=== PATIENT | female | born 1980 | race Hispanic/Latino ===

== ENCOUNTER 2016-09-18 09:39 | Day surgery (SDC) | payer OTHER ==
[~2016-09-18] VITALS: Ht 149.9 cm; Wt 69.3 kg
[2016-09-18] VITALS (9 sets, daily range): BP systolic 99–114; BP diastolic 52–65; PULSE 64–97; RESP 10–19; O2SAT 90–100
[~2016-09-18 09:39] MED LIST: BUTA1TAB52 PO; LEVO125T6 PO; Lactated Ringer's 1,000 ML IV ONE; Levofloxacin 500 mg/100 mL D5W IV ONE; OXYC5TAB72 PO; POLY17PO6 PO; PREN-100 PO; Polyethylene Glycol (PEG) 17 Gm Powder PO SCH
[2016-09-18] MEDS ORDERED: Rocuronium 10 mg/mL 5 mL Inj ONE (09:40)
[2016-09-18] MEDS ORDERED: fentaNYL-PF 50 mCg/mL 2 mL Inj ONE (09:40)
[2016-09-18] MEDS ORDERED: Neostigmine 1 mg/mL 5 mL Inj ONE (09:40)
[2016-09-18] MEDS ORDERED: Ondansetron 2 mg/mL 2 mL Inj ONE (09:40)
[2016-09-18] MEDS ORDERED: Propofol 10,000 mCg/mL 20 mL Inj ONE (09:40)
[2016-09-18] MEDS ORDERED: EPHEDrine/NS 5 mg/mL 5 mL Syringe ONE (09:40)
[2016-09-18] MEDS ORDERED: Lidocaine PF 1% 30 mL Inj ONE (09:40)
[2016-09-18] MEDS ORDERED: Dexamethasone 4 mg/mL Inj ONE (09:40)
[2016-09-18] MEDS ORDERED: Glycopyrrolate 0.2 mg/mL 5 mL Inj ONE (09:40)
[2016-09-18 10:34] LABS: BASOPHILS % (AUTO) 0.2 % (0-3); EOSINOPHILS % (AUTO) 2.6 % (0-5); MONOCYTES % (AUTO) 6.7 % (4-12); Mean Corpuscular Hemoglobin 29.8 pg (27.0-35.0); Mean Corpuscular Volume 89.5 fL (81-100); Platelet Count 250 bil/L (150-400)
[2016-09-18] MEDS ORDERED: Lactated Ringer's 1,000 ML IV SCH (12:11)
[2016-09-18] MEDS ORDERED: Lactated Ringer's 500 ML IV PRN (12:11)
--- NOTE | 2016-09-18 12:11 | PCM.HPANE ---
Patient Data Surgeon Admitting Provider: Attending Provider:Fidelia Aquino MD Primary Care Physician:Geremias King MD Other Provider:[facility] Reason for Visit Cholelithiasis Ht/WT & BMI Height (Feet): 4 Height (Inches): 11 Weight (Kilograms): 68.95 Body Mass Index 30.00 Allergies Coded Allergies: No Known Allergies (Verified , 09/08/16) Past Anesthesia History Anesthesia History: Denies:: Anesthesia Reactions, Fam Anesthesia Reaction Diabetes History Hx Diabetes?: No MRSA MRSA: No Medications Active Scripts oxyCODONE 5 Mg Tablet5 Mg PO Q4H PRN For Moderate Pain #20 TABLET Prov:Fidelia Aquino MD 09/18/16 Polyethylene Glycol 3350 (Miralax)17 Gm Powd.pack17 Gm PO DAILY #20 Prov:Fidelia Aquino MD 09/18/16 Reported Medications Levothyroxine 125 Mcg [id number] Mcg PO DAILY For Thyroid Replacement Ref 0 09/06/16 Vits #90/Iron Fum/FA ( Formula Tablet)1 Each Tablet1 Each PO DAILY 09/06/16 Butalbital/Acetaminophen 50-325 mg 1 Each Tablet1-2 Tablet PO Q4H PRN migraines 09/06/16 History History of ENT Problems?: Yes HEENT History: Positive for:: TMJ (grinds, 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) Denies:: Cataracts Hearing Problem Hx of Heart Problems?: No Cardiovascular History: Denies:: AICD Abdominal Aortic Aneurism Atrial Fibrillation Chest Pain Edema Heart Murmur Hypertension Irregular Heartbeat Pacemaker Rheumatic Fever Hx of Respiratory Problem?: Yes Respiratory History: Positive for:: Asthma (hx of reactive airway, exercise induced) Pneumonia Use of C-PAP Machine (sleep study 04/2016- negative) Denies:: COPD Emphysema Oxygen Administration Tuberculosis (positive reading at age 7, negative CXR since) Hx Neurologic Problems?: Yes Neurological History: Positive for:: Headaches (migraines, not recently) Denies:: CVA Dizziness Multiple Sclerosis Parkinson's Disease Seizures Hx of GI Problems?: Yes Gastrointestinal History: Positive for:: Gall Bladder Disease (current admission problem) Gastroesphageal Reflux (OTC as needed, once weekly) Heartburn Denies:: Gastrointestinal Bleeding Hepatitis Hiatal Hernia Rectal Bleeding Hx of Problems?: No Genitourinary History: Denies:: Urinary Tract Infection Female Hx: Denies:: Currently (missed ab , D+C done 09/08/16) Problems with Breasts? Skin History: Denies:: History Skin Disorders? Pressure Ulcers Hx Musculoskeletal Problems?: No Musculoskeletal History: Denies:: Degenerative Joint Joint Replacement Musculoskeletal Trauma Systemic Lupus Hx of Psycho/Social Problems?: No Psycho Social History: Positive for:: Anxiety (occasional alprazalom) Denies:: Hx Depression Hx Surgeries?: Yes (thyroidectomy, right salpingectomy, D+C) Hx Any Other Health Problems?: Yes Other History: Positive for:: Cancer (thyroid- excision and radiation) Thyroid Disease History Blood Transfusions: Denies:: Blood Transfusions Hx Diabetes: No Hx Alcohol Use: YesHx Substance Use: No Smoking Status: Former Smoker Have You Smoked inLast 12 mo: No Stop/Bang S-Snoring: Do You Snore Loudly: No T-Tired: feel tired, fatigued: Yes O-Obsered: Observed not breath: No P-Blood Pressure: treated: No B- Body Mass Index > 35 kg/m2: No A- Age over 50: No N- Neck Large Circumference: No G- Gender Male: No NOLAN Total Score: 1 Risk Assessment Category Category 1A: Patient has history of documented sleep apnea, and HAS NOT received any narcotic, sedative or anesthesia administration during this stay. Category 1B: Patient has history of documented sleep apnea, and HAS received any narcotic , sedative or anesthesia administration during this stay Category 2: Patient has SUSPECTED Obstructive Sleep Apnea, and HAS received any narcotic , sedative or anesthesia administration during this stay. Category 3: Patient has SUSPECTED Obstructive Sleep Apnea and HAS NOT received narcotic, sedative or anesthesia administration during this stay. Category 4: Outpatient in Procedural Areas with known sleep apnea or who screen positive for High Risk via the STOP/BANG questionnaire. Exam Exam General Appearance: Alert, Oriented X3 HEENT/AIRWAY: MP 2, Neck Movement (FROM) Lungs: Clear to Auscultation, Clear to Percussion Heart: Exam Unremarkable, Regular Rate/Rhythm Plan Impression Patient chart reviewed, patient interviewed and anesthestic plan with risks, benefits, and alternatives discussed, and informed consent obtained. NPO Status: 8PM 09/07 ASA Physical Status: ASA2 Mod Systemic Disease Bene/Risks/Altern/Consents: Yes HP Complete Prior to Induction: Yes Severino Mcintosh MD Sep 18, 2016 09:34
[2016-09-18] MEDS ORDERED: Bupivacaine-MPF 0.5% 30 mL Inj INFILTRATE ONE (12:14)
[2016-09-18] MEDS ORDERED: Atropine 0.4 mg/mL Inj IVPUSH PRN (12:15)
[2016-09-18] MEDS ORDERED: Labetalol 5 mg/mL 4 mL Inj IV PRN (12:15)
[2016-09-18] MEDS ORDERED: Ondansetron 2 mg/mL 2 mL Inj IVPUSH PRN (12:15)
[2016-09-18] MEDS ORDERED: HYDROmorphone 1 mg/mL Inj IVPUSH PRN (12:15)
[2016-09-18] MEDS ORDERED: EPHEDrine Sulfate 50 mg/mL Inj IVPUSH PRN (12:15)
[2016-09-18] MEDS ORDERED: Phenylephrine 10,000 mCg/mL Inj IVPUSH PRN (12:15)
[2016-09-18] MEDS ORDERED: MetoCLOpramide 5 mg/mL 2 mL Inj IVPUSH PRN (12:15)
[2016-09-18] MEDS ORDERED: fentaNYL-PF 50 mCg/mL 2 mL Inj IVPUSH PRN (12:15)
[2016-09-18] MEDS ORDERED: Lactated Ringer's 1,000 ML IV ONE (13:47)
--- NOTE | 2016-09-18 14:21 | PCM.ANEP1 ---
Post Anesthesia Phase 1 PACU Phase 1 Assessment Vital Signs Vital Signs Date Time Temp Pulse Resp B/P Pulse Ox O2 Delivery O2 Flow Rate FiO2 09/18/16 14:15 87 15 107/59 97 Nasal Cannula 2 09/18/16 14:10 89 10 108/54 90 Room Air 09/18/16 14:06 37 97 19 114/64 94 Room Air 09/18/16 11:00 35.9 64 14 108/65 99 Room Air Anesthetic Administered: GA Level of Alertness: Awake, talking MAN's with Equal Strength: Yes Pain: No Nausea or Vomiting: No Oxygen Delivery: Simple Mask Lungs: Clear to Auscultation, Clear to Percussion Summary See anesth record for pacu vs. PACU VSS Severino Mcintosh MD Sep 18, 2016 14:21
--- NOTE | 2016-09-18 14:22 | PCM.ANEP2 ---
Post Anesthesia Evaluation ASA/CMS Post Anesthesia VS in Patient's Normal Range?: Yes Resp Stable; Airway Patent?: Yes CV Function & Hydration Stable: Yes Mental Status Recovered?: Yes Pain control Satisfactory?: Yes N/V Control Satisfactory?: Yes Severino Mcintosh MD Sep 18, 2016 14:22
--- NOTE | 2016-09-18 15:17 | DRSVH ---
PROCEDURE: X-RAY OPERATIVE CHOLANGIOGRAM ([id number]) INDICATIONS: 36 year-old female with gallstone, undergoing laparoscopic cholecystectomy. COMPARISON: [facility] Ultrasound, US, US ABDOMEN, 09/14/2016, 16:05. FINDINGS: Biliary ducts: The surgeon injected contrast into the biliary ducts after cannulation of the cystic duct stump. Visualized intra- and extrahepatic bile ducts are normal in caliber, without strictures. There is a nonmobile filling defect near the junction of the cystic duct with the extrahepatic bile duct. No evidence for iatrogenic ductal injury. There is small contrast extravasation from the tip o f the cannula. Duodenum: Contrast flows promptly through the sphincter of Oddi into the duodenum, which appears nor mal in caliber. IMPRESSION: Nonmobile filling defect within the medial cystic duct may represent injected air bubble versus retained stone. Dictated by: Nelson Ho M.D. on 09/18/2016 at 15:15 Approved by: Nelson Ho M.D. on 09/18/2016 at 15:15
--- NOTE | 2016-09-18 18:21 | OP ---
[address] [address] OPERATIVE REPORT PATIENT: LUANNE TEJADA : 1980 MR#: [id number] ADMIT: 09/18/2016 JOB ID: [id number] DATE OF SURGERY: 09/18/2016 PREOPERATIVE DIAGNOSIS(ES): Cholelithiasis. POSTOPERATIVE DIAGNOSIS(ES): Cholelithiasis. PROCEDURE PERFORMED: Laparoscopic cholecystectomy with intraoperative cholangiogram. SURGEON: Fidelia Aquino MD. FUNERAL ASSISTANT: Jarrett Lane PA-C. INDICATIONS: The patient is a 36-year-old lady who has severe upper abdominal pain and nausea after having a bagel with cream cheese on September 14, prompting her to see Dr. Rueda in [facility]. Dr. Rueda got an ultrasound and sent her for surgical consultation. She had a similar episode six months before but was not worked up. I saw her and recommended laparoscopic cholecystectomy. When I obtained liver function studies, they were elevated. Repeat liver function studies before the operation today showed them to be trending down towards normal. After discussing the risks, benefits, and alternatives, she is brought to the operating room for laparoscopic cholecystectomy with cholangiogram. PROCEDURE DETAILS: She was placed in a supine position and underwent smooth induction of general anesthesia. Abdomen was prepped and draped in the usual sterile fashion. Surgical time-out was undertaken using safety checklist, and all were in agreement. I began by entering the abdomen using the infraumbilical incision that she previously had and entered the abdomen using open Prachi technique and Optiview trocars. After obtaining pneumoperitoneum, placed additional 5 mm trocars in the right upper quadrant and epigastrium under direct vision, then retracted the gallbladder cephalad and to the right, opening the triangle of Calot anteriorly and posteriorly. I divided the cystic artery with a combination of electrocautery and clip, and when we dissected the infundibulum of the gallbladder, it kept extending down smoothly as a cystic duct and no obvious transition between the infundibulum and cystic duct was apparent. At this point, after I identified the cystic plate and created the window between the gallbladder and the liver, I took the dissection all the way to the fundus, to suspend the gallbladder from the cystic duct. After that, I placed an Endoloop at the lower part of the gallbladder and obtained a cholangiogram. This showed normal biliary anatomy with good flow of contrast into the duodenum, but there was a stone in the cystic duct right at the junction with the common bile duct. I attempted to manipulate the stone back with graspers and I also tried to pull it back with a Pedro balloon but I was unable to. At this point, I proceeded to control the cystic duct with endoloop and divided the gallbladder between the endoloops and placed it in an EndoCatch bag. After this, the gallbladder in the EndoCatch bag was removed through the umbilical port site and umbilical fascia was closed with [id number] 0-Vicryl suture and the skin was reapproximated with 4-0 Monocryl. Steri-Strips and sterile dressing were applied. Patient was recovered from anesthesia and was taken to the recovery room in stable condition. ALEXIS
--- NOTE | 2016-09-20 16:28 | PATH ---
SURGICAL PATHOLOGY Attending Physician:Fidelia Aquino MD CASE STATUS: Signed Out PATIENT NAME: LUANNE TEJADA PID: [id number] : 1980 DATE COLLECTED:09/18/2016 00:00 SPECIMEN: Gallbladder CLINICAL HISTORY: A: GALLBLADDER FINAL DIAGNOSIS: 1.GALLBLADDER: CHOLESTEROLOSIS AND CHOLELITHIASIS. ICD10 CODE K82.4 N80.7 GROSS DESCRIPTION: The specimen is received in one formalin filled container labeled with the patient's name, sublabeled "gallbladder" and consists of an intact 7.0 x 2.5 x 2.5 CM gallbladder. The serosa is smooth. The wall is 0.2-0.3 CM in thickness. The mucosa is a light to dark yellow-green in color. The lumen contains a dark green mucoid material and one light green lombardi calculus which measures 2.5 x 2.2 x 1.5 CM. 5 graphic art sales representative sections are submitted one cassette. 09/19/2016 DAC MICRO DESCRIPTION: See diagnosis. ICD-9 CODES: CPT CODES: 1: 73658 Electronically Signed Out Madelaine Pérez MD [facility] [address], [place] [address] Technical component performed at [facility], [address] [place] [address] Ave[address], [place], [address]
[2017-02-14] MEDS ORDERED: HYDR2TAB27 PO (20:37)
[2017-02-14] MEDS ORDERED: ONDA4TAB9 PO (20:37)
[2017-02-14] MEDS ORDERED: FAMO20TA4 PO (20:37)
[2017-02-14] MEDS ORDERED: OMEP20CA11 PO (20:37)
[2017-02-14] MEDS ORDERED: ALBU18HF INH (20:37)
== END 2016-09-18 23:59 | disposition home or self-care (01) ==
LOC: SAS 09:39
PROVIDERS: ATTEND Student in an Organized Health Care Education/Training Program
DX: K80.20 Calculus of gallbladder without cholecystitis without obstruction (principal); J45.909 Unspecified asthma, uncomplicated; R51 Headache; Z85.850 Personal history of malignant neoplasm of thyroid; Z87.891 Personal history of nicotine dependence; E66.9 Obesity, unspecified; Z68.30 Body mass index [BMI] 30.0-30.9, adult
CPT/HCPCS: 36415; 47563; 74300; 80053; 85025; C1725; J1100; J1170; J2405; J2710; J7120; Q9967

== ENCOUNTER 2016-11-17 13:17 | Day surgery (SDC) | payer OTHER, MEDICAID ==
[~2016-11-17] VITALS: Ht 149.9 cm; Wt 67.1 kg
[2016-11-17] VITALS (9 sets, daily range): BP systolic 101–119; BP diastolic 59–89; PULSE 64–99; RESP 11–22; O2SAT 97–99
[~2016-11-17 13:17] MED LIST changes: -Lactated Ringer's 1,000 ML IV ONE; +Lactated Ringer's 1,000 ML IV SCH; -Levofloxacin 500 mg/100 mL D5W IV ONE; -Polyethylene Glycol (PEG) 17 Gm Powder PO SCH
[2016-11-17] MEDS ORDERED: Dexamethasone 4 mg/mL Inj ONE (13:18)
[2016-11-17] MEDS ORDERED: MetoCLOpramide 5 mg/mL 2 mL Inj ONE (13:18)
[2016-11-17] MEDS ORDERED: Propofol 10,000 mCg/mL 20 mL Inj ONE (13:18)
[2016-11-17] MEDS ORDERED: Ondansetron 2 mg/mL 2 mL Inj ONE (13:18)
[2016-11-17] MEDS ORDERED: Succinylcholine Chloride 20 mg/mL 5 mL Inj ONE (13:18)
[2016-11-17] MEDS ORDERED: ALPR1TAB7 PO (13:45)
[2016-11-17] MEDS ORDERED: Lactated Ringer's 1,000 ML IV SCH (13:52)
[2016-11-17] MEDS ORDERED: Lactated Ringer's 500 ML IV PRN (13:52)
--- NOTE | 2016-11-17 13:52 | PCM.HPANE ---
Patient Data Surgeon Admitting Provider: Attending Provider:Kenyetta Cody MD Primary Care Physician:Geremias King MD Other Provider:Claud[facility] Anesthesia Reason for Visit Abnormal Lfts Ht/WT & BMI Height (Feet): 4 Height (Inches): 11 Weight (Kilograms): 67.13 Body Mass Index 29.00 Allergies Coded Allergies: No Known Allergies (Verified , 09/08/16) Past Anesthesia History Anesthesia History: Denies:: Abnormal Airway, Anesthesia Reactions, Difficult Intubation, Fam Anesthesia Reaction, Fam Malignant Hypertherm, Malignant Hyperthermia Diabetes History Hx Diabetes?: No MRSA MRSA: No Medications Active Scripts Polyethylene Glycol 3350 (Miralax)17 Gm Powd.pack17 Gm PO DAILY #20 Prov:Fidelia Aquino MD 09/18/16 Reported Medications Alprazolam 1 Mg Tablet1 Mg PO TID PRN For Anxiety Ref 0 11/17/16 Levothyroxine 125 Mcg [id number] Mcg PO DAILY For Thyroid Replacement Ref 0 09/06/16 Vits #90/Iron Fum/FA ( Formula Tablet)1 Each Tablet1 Each PO DAILY 09/06/16 Butalbital/Acetaminophen 50-325 mg 1 Each Tablet1-2 Tablet PO Q4H PRN migraines 09/06/16 Discontinued Scripts oxyCODONE 5 Mg Tablet5 Mg PO Q4H PRN For Moderate Pain #20 TABLET Prov:Fidelia Aquino MD 09/18/16 History History of ENT Problems?: Yes HEENT History: Positive for:: TMJ (grinds, 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) Denies:: Abnormal Airway Cataracts Difficult Intubation Hearing Problem Hx of Heart Problems?: No Cardiovascular History: Denies:: AICD Abdominal Aortic Aneurism Atrial Fibrillation Chest Pain Edema Heart Murmur Hypertension Irregular Heartbeat Pacemaker Rheumatic Fever Hx of Respiratory Problem?: Yes Respiratory History: Positive for:: Asthma (hx of reactive airway, exercise induced) Pneumonia Use of C-PAP Machine (sleep study 04/2016- negative) Denies:: COPD Emphysema Oxygen Administration Tuberculosis (positive reading at age 7, negative CXR since) Hx Neurologic Problems?: Yes Neurological History: Positive for:: Headaches (migraines, not recently) Denies:: CVA Dizziness Multiple Sclerosis Parkinson's Disease Seizures Hx of GI Problems?: Yes Gastrointestinal History: Positive for:: Gall Bladder Disease (stones in CBD and gallbladder removed) Gastroesphageal Reflux (OTC as needed, once weekly) Heartburn Denies:: Gastrointestinal Bleeding Hepatitis Hiatal Hernia Rectal Bleeding Hx of Problems?: No Genitourinary History: Denies:: Urinary Tract Infection Female Hx: Denies:: Currently (missed ab , D+C done 09/08/16) Problems with Breasts? Skin History: Denies:: History Skin Disorders? Pressure Ulcers Hx Musculoskeletal Problems?: No Musculoskeletal History: Denies:: Degenerative Joint Joint Replacement Musculoskeletal Trauma Systemic Lupus Hx of Psycho/Social Problems?: No Psycho Social History: Positive for:: Anxiety (occasional alprazalom) Denies:: Hx Depression Hx Surgeries?: Yes (thyroidectomy, right salpingectomy, D+C, gallbladder removed) Hx Any Other Health Problems?: Yes Other History: Positive for:: Cancer (thyroid- excision and radiation) Thyroid Disease History Blood Transfusions: Denies:: Blood Transfusions Hx Diabetes: No Hx Alcohol Use: Yes (sometimes)Hx Substance Use: No Smoking Status: Former Smoker Have You Smoked inLast 12 mo: No Stop/Bang Treated for Sleep Apnea?: No Do You Have a CPAP Machine?: No S-Snoring: Do You Snore Loudly: Yes T-Tired: feel tired, fatigued: No O-Obsered: Observed not breath: No P-Blood Pressure: treated: No B- Body Mass Index > 35 kg/m2: No A- Age over 50: No N- Neck Large Circumference: No G- Gender Male: No NOLAN Total Score: 1 NOLAN Risk Assessment: Low Risk, <3 Yes Risk Assessment Category Category 1A: Patient has history of documented sleep apnea, and HAS NOT received any narcotic, sedative or anesthesia administration during this stay. Category 1B: Patient has history of documented sleep apnea, and HAS received any narcotic , sedative or anesthesia administration during this stay Category 2: Patient has SUSPECTED Obstructive Sleep Apnea, and HAS received any narcotic , sedative or anesthesia administration during this stay. Category 3: Patient has SUSPECTED Obstructive Sleep Apnea and HAS NOT received narcotic, sedative or anesthesia administration during this stay. Category 4: Outpatient in Procedural Areas with known sleep apnea or who screen positive for High Risk via the STOP/BANG questionnaire. Exam Exam Vital Signs Vital Signs Date Time Temp Pulse Resp B/P Pulse Ox O2 Delivery O2 Flow Rate FiO2 11/17/16 13:43 66 14 111/72 99 Room Air General Appearance: Oriented X3 HEENT/AIRWAY: MP 2 Lungs: Normal Air Movement Heart: Regular Rate/Rhythm Meds/Labs/Diagnostics Admission Meds Current Medications Lactated Ringer's (Lr) 1,000 ml @ 120 mls/hr Q8H20M IV Last administered on t 13:45; Start 11/17/16 at 05:00; Stop 11/17/16 at 13:19; Status DC Plan Impression Patient chart reviewed, patient interviewed and anesthestic plan with risks, benefits, and alternatives discussed, and informed consent obtained. NPO Status: 8PM 09/07 ASA Physical Status: ASA2 Mod Systemic Disease Anesthetic Plan: GA Bene/Risks/Altern/Consents: Yes HP Complete Prior to Induction: Yes Chad Callaway MD Nov 17, 2016 13:52
[2016-11-17] MEDS ORDERED: Dexamethasone 4 mg/mL Inj IVPUSH PRN (13:55)
[2016-11-17] MEDS ORDERED: HYDROmorphone 1 mg/mL Inj IVPUSH PRN (13:55)
[2016-11-17] MEDS ORDERED: MetoCLOpramide 5 mg/mL 2 mL Inj IVPUSH PRN (13:55)
[2016-11-17] MEDS ORDERED: fentaNYL-PF 50 mCg/mL 2 mL Inj IVPUSH PRN (13:55)
[2016-11-17] MEDS ORDERED: EPHEDrine Sulfate 50 mg/mL Inj IVPUSH PRN (13:55)
[2016-11-17] MEDS ORDERED: Phenylephrine 10,000 mCg/mL Inj IVPUSH PRN (13:55)
[2016-11-17] MEDS ORDERED: Ondansetron 2 mg/mL 2 mL Inj IVPUSH PRN (13:55)
--- NOTE | 2016-11-17 15:51 | PCM.ANEP1 ---
Post Anesthesia Phase 1 PACU Phase 1 Assessment Vital Signs Vital Signs Date Time Temp Pulse Resp B/P Pulse Ox O2 Delivery O2 Flow Rate FiO2 11/17/16 15:49 83 18 119/59 99 Simple Mask 8 11/17/16 15:43 36.9 99 11 118/89 99 Simple Mask 8 11/17/16 13:43 66 14 111/72 99 Room Air Anesthetic Administered: GA Level of Alertness: Awake, talking Pain: No Nausea or Vomiting: No Oxygen Delivery: Room Air Lungs: Normal Air Movement Chad Callaway MD Nov 17, 2016 15:51
--- NOTE | 2016-11-17 15:51 | PCM.ANEP2 ---
Post Anesthesia Evaluation ASA/CMS Post Anesthesia VS in Patient's Normal Range?: Yes Resp Stable; Airway Patent?: Yes CV Function & Hydration Stable: Yes Mental Status Recovered?: Yes Pain control Satisfactory?: Yes N/V Control Satisfactory?: Yes Chad Callaway MD Nov 17, 2016 15:51
--- NOTE | 2016-11-17 15:59 | DRSVH ---
PROCEDURE: X-RAY E.R.C. BILIARY DUCTS ([id number]) INDICATIONS: ABNORMAL LFTS TECHNIQUE: Fluoroscopic spot films were acquired by the gastroenterology service during ERCP procedu re. COMPARISON: [facility], MR, MR ABD MRCP, 11/02/2016, 8:27. FINDINGS: Intraoperative fluoroscopy images demonstrate an endoscope. There is partial opacification of the extrahepatic bile duct which is grossly normal in caliber. No definite intraluminal filling defects are seen. No extravasation. IMPRESSION: Intraoperative fluoroscopy images demonstrating partial opacification of the extrahepatic bile duct which appears normal in caliber where visible. No definite intraluminal filling defects. Dictated by: Kobe MAXWELL Interpreted: Larissa Aragon MD on 11/17/2016 at 15:58 Transcribed by: SARAY on 11/17/2016 at 15:59 Approved by: Larissa Aragon M.D. on 11/17/2016 at 17:54
--- NOTE | 2016-11-17 16:21 | ENDO ---
[address] [address] ENDOSCOPY PROCEDURE PATIENT: LUANNE TEJADA : 1980 MR#: [id number] ADMIT: 11/17/2016 JOB ID: [id number] DATE OF SERVICE: 11/17/2016 PROCEDURE: Endoscopic retrograde cholangiopancreatography. INDICATION: The patient is status post laparoscopic cholecystectomy for symptomatic cholelithiasis who following cholecystectomy had had two episodes of epigastric pain with associated abnormal LFT. She has a known cystic duct stone. She had a recent MRCP, which did not show any evidence of ductal dilation or biliary stones. ASA CLASSIFICATION, MALLAMPATI SCORE AND MEDICATIONS: Please see Dr. Chad Callaway's anesthesia report for details regarding ASA classification, Mallampati score and medications. The patient was placed under general anesthesia. INSTRUMENT USED: [id number]. PROCEDURE DETAILS: After informed consent was obtained, the patient was brought into the GI suite, where she was placed under general anesthesia. She was placed in the standard ERCP position. The side-viewing duodenoscope was introduced through the bite block and advanced without difficulty to the second portion of the duodenum. Initial wrapper stemmer hand films demonstrated the linear opaque objects consistent with surgical clips in the expected place of her recent gallbladder surgery. The papilla was identified, and bile was seen flowing from the papilla. The papilla appeared normal. Next, using a Olympus CleverCut tome, we cannulated the papilla and initially gained access into the pancreatic duct. No contrast was injected. However, a wire was advanced and left in place as we then attempted to redirect the catheter into the biliary tree. After gaining access into the biliary tree with wire guidance, contrast was injected which revealed an approximately 7 mm common bile duct without any obvious filling defects. The intrahepatics were filled and appeared normal. I did not appreciate filling of the cystic duct remnant. Next, a moderate-sized sphincterotomy was performed, followed by balloon sweep, which extruded a minimal amount of sludge. Final cholangiogram demonstrated rapid emptying of contrast, and pneumobilia was appreciated in the distal common bile duct. IMPRESSION: Status post endoscopic retrograde cholangiopancreatography with sphincterotomy and balloon sweep, with extraction of minimal amount of sludge. RECOMMENDATIONS: 1. Avoid NSAIDs and anticoagulants for 72 hours. 2. Follow up in GI clinic in 2-4 weeks. COMPLICATIONS: None. ESTIMATED BLOOD LOSS: Zero. MTDD
[2017-02-14] MEDS ORDERED: ONDA4TAB9 PO (20:37)
[2017-02-14] MEDS ORDERED: ALBU18HF INH (20:37)
[2017-02-14] MEDS ORDERED: FAMO20TA4 PO (20:37)
[2017-02-14] MEDS ORDERED: OMEP20CA11 PO (20:37)
[2017-02-14] MEDS ORDERED: HYDR2TAB27 PO (20:37)
== END 2016-11-17 23:59 | disposition home or self-care (01) ==
LOC: END 13:17
PROVIDERS: ATTEND Internal Medicine Gastroenterology
DX: K80.70 Calculus of gallbladder and bile duct without cholecystitis without obstruction (principal); G43.109 Migraine with aura, not intractable, without status migrainosus; Z85.850 Personal history of malignant neoplasm of thyroid; Z79.51 Long term (current) use of inhaled steroids
CPT/HCPCS: 43262; 74328; J0330; J1100; J2405; J2765; J7120; Q9967

== ENCOUNTER 2017-02-03 06:21 | Emergency (ER) | payer OTHER, MEDICAID ==
[~2017-02-03] VITALS: Ht 149.9 cm; Wt 65.9 kg
[~2017-02-03 06:21] MED LIST changes: +ALPR1TAB7 PO; -Lactated Ringer's 1,000 ML IV SCH; -OXYC5TAB72 PO
[2017-02-03 06:23] VITALS: BP 105/80; PULSE 68; RESP 15; O2SAT 98
--- NOTE | 2017-02-03 06:34 | ED.REPORT ---
HPI- Female Date of Service February 03, 2017 ED Provider: Patient is a36 year old female, 8w1d twin gestation who presents to [facility] ED accompanied by her complaining of vaginal bleeding since this morning. Patient states she has been having brownish spotting daily especially after sexual intercourse and with exertion. She denies cramping or leaking fluid. She reports nausea, vomiting and fatigue. She denies other symptoms. Patient has a history of hypothyroidism, she is taking Levothyroxine, 112 mcg daily. LMP 12/10/2016, JAUN 09/14/2017. Nursing Notes Stated Complaint: VAGINAL BLEEDING/ Chief Complaint: Female Abdominal Pain Nursing Notes Reviewed: Yes Allergies: Coded Allergies: No Known Allergies (Verified , 09/08/16) Scheduled Levothyroxine (Levothyroxine) 125 Mcg Tablet 125 MCG PO DAILY Polyethylene Glycol 3350 (Miralax) 17 Gm Powd.pack 17 GM PO DAILY Vits #90/Iron Fum/FA ( Formula Tablet) 1 Each Tablet 1 EACH PO DAILY Scheduled PRN Alprazolam (Alprazolam) 1 Mg Tablet 1 MG PO TID PRN PRN For Anxiety Butalbital/Acetaminophen 50-325 mg (Butalbital/Acetaminophen 50-325 mg) 1 Each Tablet 1-2 TABLET PO Q4H PRN PRN migraines General Time Seen by MD: 06:34 Chief Complaint Vaginal bleeding... (Mild) Hx Obtained From: Patient Arrived By: Walk-in Sudden in Onset?: No Onset Occurred: Just prior to arrival Context of Onset: , 1st trimester Location: : LLQ Quality: Fullness Severity: Current: Mild Status: Positive - home urine HCG Sexual History / Control: Reports Pt is sexually active : 5 Para: 2 Abortions: 2 Recent Healthcare: Recent doctor visit (Dr. Power on 02/01/2017) Risk- Female US OB transvaginal on 01/23/17: Diamniotic dichorionic twin living intrauterine gestation Past Medical History Past Medical History Notes: Hypothyroidism Thyroid removal 2009 d/t [place] Smoking History Former Smoker Social History Alcohol Use: Denies alcohol use Drug Use: Denies drug use Other Social History: , Lives with children, Local resident Ambulatory Status Independent Review of Systems Constitutional: Reports: Fatigue, Denies: Chills, Fever GI: Reports: Constipation, Nausea, Vomiting, Denies: Diarrhea Female: Denies: Dysuria, Flank pain, Urinary frequency Musculoskeletal: Denies: Back pain, Extremity swelling Neurologic: Denies: Dizziness Physical Exam Initial Vital Signs Vital Signs (First) Date Time Temp Pulse Resp B/P Pulse Ox O2 Delivery O2 Flow Rate FiO2 02/03/17 06:23 36.7 68 15 105/80 98 Room Air Initial VS: Reviewed, Vital signs normal Female Genitourinary: Kiln Operator Helper present, Atraumatic, External genitalia NL, No cervical motion tend, Os closed, No adnexal tenderness, No lesions or rash, Perineal skin NL Vaginal Bleeding / Discharge: Positive: Discharge bloody, Discharge brown General/Constitutional: Awake, Alert, No acute distress, Well appearing, Well developed, Well hydrated, Well nourished, Cooperative Respiratory / Chest: Atraumatic, Breath sounds = bilat, No respiratory distress , No wheezing Cardiovascular: Heart rate NL, Regular rhythm, Heart sounds NL Abdomen: Atraumatic, Soft Tenderness/Guarding/Rebound: Positive: Tender LLQ... (Mild) Back: Atraumatic, Inspection NL Skin: Atraumatic, Color NL, No rash, Warm, Dry, Intact Head / Eyes: Atraumatic, Normocephalic, PERRL, EOMI ENT: Mucous membranes moist, Pharynx NL Neck: Atraumatic, Supple, Full range of motion, No adenopathy Lymphatic: No cervical adenopathy Lower Extremity / Pelvis / MS: No swelling, Non-tender Interpretation & Diagnostics Lab Results Interpretation Result Diagram: 02/03/17 0715 02/03/17 0715 Test 02/03/17 07:15 White Blood Count 7.8th/mm3 (3.8-10.1) Red Blood Count 4.19mil/mm3 (3.90-5.20) Hemoglobin 12.5g/dL (12.0-15.6) Hematocrit 35.4% (35.0-46.0) Mean Corpuscular Volume 84.5fL (81-100) Mean Corpuscular Hemoglobin 29.8pg (27.0-35.0) Mean Corpuscular Hemoglobin Concent 35.3% (32.0-37.0) Red Cell Distribution Width 13.2% (12.3-15.4) Platelet Count 225bil/L (150-400) Urine Color Yellow (YELLOW) Urine Appearance Hazy (CLEAR,HAZY) Urine pH 6.5 (5.0-8.0) Urine Specific [place] 1.011 (1.003-1.035) Urine Protein Negativemg/dL (NEG,TRACE) Urine Glucose (UA) Negativemg/dL (NEGATIVE) Urine Ketones Negativemg/dL (NEGATIVE) Urine Occult Blood Large (NEGATIVE) Urine Nitrite Negative (NEGATIVE) Urine Bilirubin Negative (NEGATIVE) Urine Urobilinogen Normalmg/dL (NORMAL) Urine Leukocyte Esterase Moderate (NEGATIVE) Urine RBC 0-2/hpf (0-2) Urine WBC 11-50/hpf (0-5) Urine Epithelial Cells Moderate/hpf (NONE-MOD) Urine Crystals None seen (NONE SEEN) Urine Bacteria Many/hpf (NONE-FEW) Urine Hyaline Casts None/lpf (NONE) Urine Granular Casts None seen (NONE SEEN) Urine Waxy Casts None seen (NONE SEEN) Urine Red Blood Cell Casts None seen (NONE SEEN) Urine White Blood Cell Casts None seen (NONE SEEN) Urine Mucus None seen (None Seen) Urine Trichomonas None seen (NONE SEEN) Urine Yeast None (NONE SEEN) Urinalysis Comment None Urine Culture Reflexed Indicated Sodium Level 132mEq/L (134-144) Potassium Level 3.7mEq/L (3.5-5.2) Chloride Level 97mEq/L (97-108) Carbon Dioxide Level 18mmol/L (18-29) Blood Urea Nitrogen 6mg/dL (6-20) Creatinine 0.40mg/dL (0.57-1.00) Estimat Glomerular Filtration Rate 260mL/min (>59) Glucose Level 82mg/dL (60-99) Calcium Level 9.0mg/dL (8.5-10.1) Total Bilirubin 0.5mg/dL (0.0-1.2) Aspartate Amino Transf (AST/SGOT) 22U/L (0-50) Alanine Aminotransferase (ALT/SGPT) 31U/L (0-32) Alkaline Phosphatase 86U/L (25-150) Total Protein 6.9g/dL (6.4-8.4) Albumin 3.9g/dL (3.4-5.0) HCG Beta Subunit [id number]/mL Lab values outside NL range: no clinical significance. Lab Results Interpretation: B-HCG [id number] RH (+) US Focused OB Exam Performed by: Allied health pract Exam Type: Diagnostic Exam Interpreted by: Radiologist Indication: Quant hCG positive, Vaginal bleeding Findings: If preg: heart pos (162 bpm) Findings Adnexa: L ovarian cyst (3.01 x 2.3 x 2.1) Interpretation: Live intrauterine preg (Diamniotic dichorionic twin living intrauterine gestation, FHR 162 bpm), Simple ovarian cyst (left) Re-Eval/Medical Decision Med Decision/Clinical Course Patient is a 36 year old female at 8w1d twin gestation presented to ED with vaginal bleeding. Ultrasound OB transvaginal revealed twin living intrauterine gestations. Blood work was unremarkable. UA was positive for leukocytes, WBC and bacteria. Urine culture is pending. A prescription for Nitrofurantoin given to the patient. Ultrasound is reassuring and pelvic examination reveals a closed cervix without any active bleeding. Case was discussed with [facility] SPECIALIST intelligence applications and follow-up as arranged. Patient feels reassured and at this time I feel she is appropriate for further outpatient management. Prior to discharge follow-up and return precautions were reviewed in detail with the patient who verbalized understanding and agreement with the plan. The patient was discharged in stable condition. Counseled Regarding: Diagnosis, Lab results, Need for follow-up, When/why to return to ED Discharge & Departure Impression: Primary Impression: Vagina bleeding Additional Impressions: Weeks of gestation: 8 weeks Qualified Code: Z3A.08 - 8 weeks gestation of Twin Multiple gestation type: unspecified Trimester: first trimester Qualified Code: O30.001 - Twin , unspecified number of placenta and unspecified number of amniotic sacs, first trimester History of miscarriage Asymptomatic bacteriuria during Disposition: Home Discharge Condition Condition: Stable Additional Instructions: Thank you for seeking care at Emergency Department today. The good news is your babies are doing well! Ultrasound revealed heart rate of 162 per minute for both of them. Your pelvic exam did not reveal active bleeding. Please make a follow up appointment with [facility] clinic on Sunday. Enjoy your ! Eat healthy, drink plenty of water and enjoy sunshine. Pelvis rest (no sex) is recommended for the next few days. You are given a prescription for an antibiotic to treat asymptomatic bacteuria. Please take as directed. Please come back to Emergency Department if you develop severe abdominal pain, vaginal bleeding, fever, nausea, vomiting. Thank you for letting us partake in you care today. Referrals: Geremias King MD (PCP) EDSupervising Provider for APC: Radhames Cook MD Attending Statement Attending attestation: I saw this patient in conjunction with the above named resident. I was present for all brand portions of the history taking and physical examination. I agree with the workup, evaluation, treatment and disposition. In summary, this is a 36-year-old female currently approximately 8 weeks with twin gestation edema with scant/now resolved mild vaginal bleeding without any cramping or other symptoms. All symptoms are now completely resolved. Ultrasound is reassuring and pelvic examination reveals a closed cervix. It is felt appropriate for outpatient management. Discussed with RECYCLING SPECIALIST who is in agreement with the plan. We will treat her asymptomatic bacteriuria. Abdominal examination benign and reassuring. Radhames Cook MD copies to: Geremias King MD; Cydney Power MD, Beck O MD February 03, 2017 06:34 Mariposa Kimbrough DO February 03, 2017 07:02
[2017-02-03] MEDS ORDERED: 0.9% Sodium Chloride 1,000 ML IV ONE (06:39)
[2017-02-03 06:43] VITALS: BP 118/64; PULSE 69; O2SAT 98
[2017-02-03 07:37] LABS: Mean Corpuscular Hemoglobin 29.8 pg (27.0-35.0); Mean Corpuscular Volume 84.5 fL (81-100)
[2017-02-03 07:46] LABS: APPEARANCE,URINE HAZY (CLEAR,HAZY); COLOR,URINE YELLOW (YELLOW); OCCULT BLOOD,URINE LARGE (NEGATIVE); PH,URINE 6.5 (5.0-8.0); UROBILINOGEN,URINE NORMAL (NORMAL)
--- NOTE | 2017-02-03 08:40 | DRSVH ---
PROCEDURE: US OB<14 WEEKS FOR TWINS AND TRANSVAGINAL INDICATIONS: 8 weeks preg, vaginal bleed OUTSIDE/PRIOR DATING DATA: Last menstrual period (LMP): 12/10/16. LMP-based estimated date of delivery (JAUN): 09/16/17. First dating scan (date and location): 01/23/17. Estimated date of delivery (JAUN) from first dating scan: 09/14/17. TECHNIQUE: Real-time scanning was performed of the fetuses and maternal pelvic organs, with image documentation. Endovaginal scanning: Performed for better visualization of the fetuses and maternal adnexal structu res. COMPARISON: [facility] Ultrasound, US, US OB<14 WKS+TWINS+TV, 01/23/2017, 14:50. FINDINGS: General: An intrauterine diamniotic dichorionic twin is present, as evidenced by separate placental sites and/or intervening membrane thickness of greater than 2 mm at this early gestational age. Embryo A: [place]-rump length is 19 mm, corresponding to an 8 week 3 day gestation. heart rate is 162 beats per minute. Embryo B: [place]-rump length is 19 mm, corresponding to an 8 week 3 day gestation. heart rate is 162 beats per minute. Measurement variability in dating: +/- 4 weeks by LMP, +/- 7 days by mean sac diameter (use before 6 weeks gestation if crown-rump length unable to be measured), +/- 5 days by crown-rump length (from 6- 12 weeks gestation). Maternal organs: Ovaries demonstrate 31 mm diameter left ovarian cyst. Right ovarian region is withi n normal limits. Limited images through the kidneys demonstrate no hydronephrosis. IMPRESSION: 1. No explanation for hemorrhage. 2. Twin living intrauterine gestations. Dictated by: Sunday Mccurdy M.D. on 02/03/2017 at 8:34 Approved by: Sunday Mccurdy M.D. on 02/03/2017 at 8:38
[2017-02-03 09:21] VITALS: BP 112/67; PULSE 68; RESP 17; O2SAT 98
[2017-02-14] MEDS ORDERED: OMEP20CA11 PO (20:37)
[2017-02-14] MEDS ORDERED: ONDA4TAB9 PO (20:37)
[2017-02-14] MEDS ORDERED: HYDR2TAB27 PO (20:37)
[2017-02-14] MEDS ORDERED: FAMO20TA4 PO (20:37)
[2017-02-14] MEDS ORDERED: ALBU18HF INH (20:37)
== END 2017-02-03 09:35 | disposition home or self-care (01) ==
LOC: SED 06:21
DX: O20.9 Hemorrhage in early pregnancy, unspecified (principal); O30.001 Twin pregnancy, unspecified number of placenta and unspecified number of amniotic sacs, first trimester; O23.91 Unspecified genitourinary tract infection in pregnancy, first trimester; E03.9 Hypothyroidism, unspecified; Z3A.08 8 weeks gestation of pregnancy; Z87.59 Personal history of other complications of pregnancy, childbirth and the puerperium; Z87.891 Personal history of nicotine dependence
CPT/HCPCS: 36415; 76801; 76802; 76817; 80053; 81000; 81025; 84702; 85027; 87086; 87088; 96360; 99285; J7030

== ENCOUNTER 2017-02-15 00:39 | Day surgery (SDC) | payer OTHER, MEDICAID ==
[~2017-02-15 00:39] MED LIST changes: +ALBU18HF INH; +FAMO20TA4 PO; +HYDR2TAB27 PO; +OMEP20CA11 PO; +ONDA4TAB9 PO
[2017-02-15] MEDS ORDERED: Lactated Ringer's 1,000 ML IV ONE (06:00)
== END 2017-02-15 23:59 | disposition home or self-care (01) ==
LOC: END 00:39
PROVIDERS: ATTEND Internal Medicine Gastroenterology
DX: Z98.890 Other specified postprocedural states (principal)

== ENCOUNTER 2017-04-19 10:31 | Emergency (ER) | payer OTHER, MEDICAID ==
[~2017-04-19] VITALS: Ht 149.9 cm; Wt 71.4 kg
[2017-04-19 10:35] VITALS: BP 96/61; PULSE 82; RESP 16; O2SAT 100
--- NOTE | 2017-04-19 10:50 | ED.REPORT ---
HPI-NVD Date of Service Apr 19, 2017 ED Provider: Eneida Mccarthy MD The pt is a 36 y/o, 18 week , female w/ a hx of hypothyroidism presenting to the ED complaining of vomiting onset last night. She also describes being unable to eat this morning, a backache, and white vaginal discharge that is "itchy". She has gotten the discharge tested but has not received the results yet. Denies fever, chills, or diarrhea. . Nursing Notes Stated Complaint: NEED IV FLUIDS, 18 WEEKS Chief Complaint: Vomiting Nursing Notes Reviewed: Yes Allergies: Coded Allergies: No Known Allergies (Verified , 04/19/17) Scheduled Amoxicillin (Amoxicillin) 500 Mg Tablet 500 MG PO TID Famotidine (Famotidine) 20 Mg Tablet 20 MG PO BID Levothyroxine (Levothyroxine) 125 Mcg Tablet 125 MCG PO DAILY Omeprazole (Omeprazole) 20 Mg Capsule.dr 20 MG PO DAILY Polyethylene Glycol 3350 (Miralax) 17 Gm Powd.pack 17 GM PO DAILY Vits #90/Iron Fum/FA ( Formula Tablet) 1 Each Tablet 1 EACH PO DAILY Scheduled PRN Albuterol Sulfate (Ventolin HFA Inhaler) 200 Puff/18 Gm Inhaler 1 PUFF INH Q4 PRN PRN For Wheezing Alprazolam (Alprazolam) 1 Mg Tablet 1 MG PO TID PRN PRN For Anxiety Butalbital/Acetaminophen 50-325 mg (Butalbital/Acetaminophen 50-325 mg) 1 Each Tablet 1-2 TABLET PO Q4H PRN PRN migraines Hydromorphone (Dilaudid) 2 Mg Tablet 2 MG PO Q4H PRN PRN Pain Ondansetron ODT (Zofran ODT) 4 Mg Tablet 4 MG PO Q4H PRN PRN For Nausea General Time Seen by MD: 10:50 Chief Complaint Vomiting Hx Obtained From: Patient Arrived By: Walk-in Onset Occurred: Yesterday Symptom Duration: Since onset Recent Healthcare: No recent hospitalization, Recent doctor visit Past Medical History Past Medical History Notes: Hypothyroidism Thyroid removal 2009 d/t [place] Past Medical History Smoking History Former Smoker Social History Alcohol Use: Denies alcohol use Drug Use: Denies drug use Other Social History: , Lives with children, Local resident Ambulatory Status Independent Review of Systems Inability to eat Constitutional: Denies: Chills, Fever GI: Reports: Nausea, Vomiting, Denies: Diarrhea Complete sys rev & neg: except as marked. Female: Reports: Vaginal discharge (white and itchy ) Musculoskeletal: Reports: Back pain Physical Exam Initial Vital Signs Vital Signs (First) Date Time Temp Pulse Resp B/P Pulse Ox O2 Delivery O2 Flow Rate FiO2 04/19/17 10:35 36.9 82 16 96/61 100 Room Air Initial VS: Reviewed Neck: Supple, Non-tender, Full range of motion Respiratory: Breath sounds normal, Clear to auscultation, No respiratory distress Cardiovascular: Regular rate & rhythm, Heart sounds normal, Intact distal pulses Extremities: Vascular intact, Neuro intact, No swelling, No tenderness Skin: Warm, Dry, No cyanosis Neurologic: Alert, Oriented, Nonfocal Psychiatric: Mood/affect normal, Behavior normal, Normal thought content General/Constitutional: Awake, Alert Abdomen: Soft Abdomen is gravid The fundus is 3 cm below the umbilicus ENT: Airway patent Mouth: Positive: Mucous membranes dry Interpretation & Diagnostics Interpretation & Diagnostics: Urine dip has leukocytes and protein and moderate ketones we will go ahead and culture and opt to believe this is also a UTI Lab Results Interpretation Result Diagram: 04/19/17 1100 04/19/17 1100 Test 04/19/17 11:00 04/19/17 11:06 04/19/17 11:27 White Blood Count 11.0th/mm3 (3.8-10.1) Red Blood Count 3.54mil/mm3 (3.90-5.20) Hemoglobin 10.8g/dL (12.0-15.6) Hematocrit 31.6% (35.0-46.0) Mean Corpuscular Volume 89.3fL (81-100) Mean Corpuscular Hemoglobin 30.5pg (27.0-35.0) Mean Corpuscular Hemoglobin Concent 34.2% (32.0-37.0) Red Cell Distribution Width 12.9% (12.3-15.4) Platelet Count 209bil/L (150-400) Neutrophils (%) (Auto) 74.9% (40-74) Lymphocytes (%) (Auto) 16.5% (14-46) Monocytes (%) (Auto) 6.6% (4-12) Eosinophils (%) (Auto) 1.4% (0-5) Basophils (%) (Auto) 0.1% (0-3) Sodium Level 136mEq/L (134-144) Potassium Level 3.8mEq/L (3.5-5.2) Chloride Level 103mEq/L (97-108) Carbon Dioxide Level 18mmol/L (18-29) Blood Urea Nitrogen 4mg/dL (6-20) Creatinine < 0.30mg/dL (0.57-1.00) Estimat Glomerular Filtration Rate 363mL/min (>59) Glucose Level 72mg/dL (60-99) Calcium Level 8.7mg/dL (8.5-10.1) Magnesium Level 1.8mg/dL (1.6-2.6) Total Bilirubin 0.4mg/dL (0.0-1.2) Aspartate Amino Transf (AST/SGOT) 25U/L (0-50) Alanine Aminotransferase (ALT/SGPT) 31U/L (0-32) Alkaline Phosphatase 112U/L (25-150) Total Protein 6.1g/dL (6.4-8.4) Albumin 3.5g/dL (3.4-5.0) Lipase 31U/L (13-60) Hold Godwin Top Tube Received (Received) Urine Color Yellow (YELLOW) Urine Appearance Hazy (CLEAR,HAZY) Urine pH 7.5 (5.0-8.0) Urine Specific [place] 1.010 (1.003-1.035) Urine Protein Negativemg/dL (NEG,TRACE) Urine Glucose (UA) Negativemg/dL (NEGATIVE) Urine Ketones Tracemg/dL (NEGATIVE) Urine Occult Blood Negative (NEGATIVE) Urine Nitrite Negative (NEGATIVE) Urine Bilirubin Negative (NEGATIVE) Urine Urobilinogen Normalmg/dL (NORMAL) Urine Leukocyte Esterase Small (NEGATIVE) Urine RBC 0-2/hpf (0-2) Urine WBC 0-5/hpf (0-5) Urine Epithelial Cells Occasional/hpf (NONE-MOD) Urine Crystals None seen (NONE SEEN) Urine Bacteria Moderate/hpf (NONE-FEW) Urine Hyaline Casts None/lpf (NONE) Urine Granular Casts None seen (NONE SEEN) Urine Waxy Casts None seen (NONE SEEN) Urine Red Blood Cell Casts None seen (NONE SEEN) Urine White Blood Cell Casts None seen (NONE SEEN) Urine Mucus None seen (None Seen) Urine Trichomonas None seen (NONE SEEN) Urine Yeast None (NONE SEEN) Urinalysis Comment None Urine Culture Reflexed Indicated Re-Eval/Medical Decision Re-Evaluation/Progress #1: Time of Eval: 13:30 Re-Evaluation/Progress Note: heart tones were confirmed by OB staff Re-Evaluation/Progress #2: Time of Eval: 13:30 Re-Evaluation/Progress Note: Pt rechecked. Informed pt of plan for treatment. Pt understands and agrees with plan for treatment. F/U instructions and RTER warnings given. All questions addressed. Counseled Regarding: Diagnosis, Lab results, Need for follow-up, When/why to return to ED Discharge & Departure Impression: Primary Impression: UTI (urinary tract infection) Urinary tract infection type: site unspecified Hematuria presence: without hematuria Qualified Code: N39.0 - Urinary tract infection, site not specified Additional Impressions: Weeks of gestation: 18 weeks Qualified Code: Z3A.18 - 18 weeks gestation of Dehydration Nausea & vomiting Vomiting type: unspecified Vomiting Intractability: unspecified Qualified Code: R11.2 - Nausea with vomiting, unspecified Disposition: Home Discharge Condition All VS Reviewed: Yes Condition: Stable Additional Instructions: Thank for you entrusting us with your care today. You were diagnosed with a urinary tract infection. I think this is what was making the nausea so noticible. Your baby looks good. You got 2 liters of fluid to help after vomitting all night. Please take the Amoxicillin as prescribed to help with the infection and return to the emergency department if you experience any new or worsening symptoms. I hope you feel better soon. Your prescription was electronically sent to [facility] for you today Referrals: Geremias King MD (PCP) Scribe Attestation Portions of this note were transcribed by Sam Garcia. I, Dr. Mccarthy personally performed the history, physical exam and medical decision-making; I reviewed and confirmed the accuracy of the information in the transcribed note. copies to: Geremias King MD, Shawna L MD Apr 19, 2017 10:50 Sam Garcia Apr 19, 2017 11:19
[2017-04-19] MEDS ORDERED: 0.9% Sodium Chloride 1,000 ML IV ONE ×2 (10:52→14:05)
[2017-04-19] MEDS ORDERED: MetoCLOpramide 5 mg/mL 2 mL Inj IVPUSH ONE (10:55)
[2017-04-19 11:09] LABS: BASOPHILS % (AUTO) 0.1 % (0-3); EOSINOPHILS % (AUTO) 1.4 % (0-5); MONOCYTES % (AUTO) 6.6 % (4-12); Mean Corpuscular Hemoglobin 30.5 pg (27.0-35.0); Mean Corpuscular Volume 89.3 fL (81-100); NEUTROPHILS % (AUTO) 74.9 % (40-74); Platelet Count 209 bil/L (150-400)
[2017-04-19 11:32] LABS: Lipase 31 U/L (13-60); Magnesium 1.8 mg/dL (1.6-2.6)
[2017-04-19 11:43] LABS: APPEARANCE,URINE HAZY (CLEAR,HAZY); COLOR,URINE YELLOW (YELLOW); OCCULT BLOOD,URINE NEGATIVE (NEGATIVE); PH,URINE 7.5 (5.0-8.0); UROBILINOGEN,URINE NORMAL (NORMAL)
[2017-04-19 12:33] VITALS: BP 83/55; PULSE 72; RESP 16; O2SAT 98
[2017-04-19] MEDS ORDERED: AMOX500T2 PO (13:35)
[2017-04-19 13:56] VITALS: BP 102/58; PULSE 96; RESP 17; O2SAT 99
[2017-04-24] MEDS ORDERED: RANI75TA21 PO (13:39)
[2017-04-24] MEDS ORDERED: LEVO25TA2 PO (13:39)
== END 2017-04-19 14:05 | disposition home or self-care (01) ==
LOC: SED 10:31
DX: O23.42 Unspecified infection of urinary tract in pregnancy, second trimester (principal); O21.9 Vomiting of pregnancy, unspecified; E86.0 Dehydration; E03.9 Hypothyroidism, unspecified; Z87.891 Personal history of nicotine dependence; Z3A.18 18 weeks gestation of pregnancy
CPT/HCPCS: 36415; 80053; 81000; 83690; 83735; 85025; 87086; 87088; 96361; 96374; 99284; J2765; J7030

== ENCOUNTER 2017-04-26 07:21 | Day surgery (SDC) | payer OTHER, MEDICAID ==
[~2017-04-26] VITALS: Ht 149.9 cm; Wt 70.5 kg
[~2017-04-26 07:21] MED LIST changes: +AMOX500T2 PO; +LEVO25TA2 PO; +Lactated Ringer's 1,000 ML IV ONE; +Lactated Ringer's 1,000 ML IV SCH; +MetoCLOpramide 5 mg/mL 2 mL Inj IVPUSH PRN; +Ondansetron 2 mg/mL 2 mL Inj IVPUSH PRN; +RANI75TA21 PO
[2017-04-26] MEDS ORDERED: Propofol 10,000 mCg/mL 20 mL Inj ONE (07:22)
[2017-04-26] MEDS ORDERED: prenatal (07:46)
[2017-04-26 07:47] VITALS: BP 94/60; PULSE 90; RESP 14; O2SAT 97
--- NOTE | 2017-04-26 08:33 | PCM.HPANE ---
Patient Data Surgeon Admitting Provider: Attending Provider:Kenyetta Cody MD Primary Care Physician:Geremias King MD Other Provider:Tyler Perez Anesthesia Reason for Visit Hx Of Biliary Stent Insertion Ht/WT & BMI Height (Feet): 4 Height (Inches): 11 Weight (Kilograms): 155 Body Mass Index 68.00 Allergies Coded Allergies: No Known Allergies (Verified , 04/19/17) Past Anesthesia History Anesthesia History: Denies:: Abnormal Airway, Anesthesia Reactions, Difficult Intubation, Fam Anesthesia Reaction, Fam Malignant Hypertherm, Malignant Hyperthermia Diabetes History Hx Diabetes?: No MRSA MRSA: No Medications Active Scripts Amoxicillin 500 Mg [id number] Mg PO TID #21 TABLET Ref 0 Prov:Eneida Mccarthy MD 04/19/17 Reported Medications [] No Conflict Check 04/26/17 Levothyroxine (Synthroid)25 Mcg [id number] Mcg PO DAILY Ref 0 04/24/17 Ranitidine (Zantac OTC)75 Mg Xlniyn42 Mg PO DAILY #1 PKG Ref 0 04/24/17 Albuterol Sulfate (Ventolin HFA Inhaler)200 Puff/18 Gm Inhaler1 Puff INH Q4 PRN For Wheezing #1 INHALER Ref 0 02/14/17 Alprazolam 1 Mg Tablet1 Mg PO TID PRN For Anxiety Ref 0 11/17/16 Levothyroxine 125 Mcg [id number] Mcg PO DAILY For Thyroid Replacement Ref 0 09/06/16 Vits #90/Iron Fum/FA ( Formula Tablet)1 Each Tablet1 Each PO DAILY 09/06/16 Discontinued Reported Medications Ondansetron ODT (Zofran ODT)4 Mg Tablet4 Mg PO Q4H PRN For Nausea 02/14/17 Omeprazole 20 Mg Capsule.dr20 Mg PO DAILY Ref 0 02/14/17 Hydromorphone (Dilaudid)2 Mg Tablet2 Mg PO Q4H PRN Pain 02/14/17 Famotidine 20 Mg Puowra85 Mg PO BID Ref 0 02/14/17 Butalbital/Acetaminophen 50-325 mg 1 Each Tablet1-2 Tablet PO Q4H PRN migraines 09/06/16 Discontinued Scripts Polyethylene Glycol 3350 (Miralax)17 Gm Powd.pack17 Gm PO DAILY #20 Prov:Fidelia Aquino MD 09/18/16 Last Time Dose Received Takes levothyroxine; Takes pnv No other current meds History History of ENT Problems?: Yes HEENT History: Positive for:: TMJ (grinds, 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) Denies:: Abnormal Airway Cataracts Difficult Intubation Dysphagia Hearing Problem Denture Type: None Teeth Condition: Within Normal Limits Hx of Heart Problems?: No Cardiovascular History: Denies:: AICD Abdominal Aortic Aneurism Atrial Fibrillation Chest Pain Congestive Heart Failure Edema Heart Murmur Hypertension Irregular Heartbeat Pacemaker Rheumatic Fever Hx of Respiratory Problem?: Yes Respiratory History: Positive for:: Asthma (exercise induced) Use of C-PAP Machine (sleep study 04/2016- negative) Denies:: COPD Cough Emphysema Hemoptysis Oxygen Administration Pneumonia Tuberculosis Other History/Comment Recent cough - resolved Hx Neurologic Problems?: Yes Neurological History: Positive for:: Headaches (migraines, not recently) Denies:: CVA Dizziness Multiple Sclerosis Parkinson's Disease Seizures Hx of GI Problems?: Yes Hx of Problems?: No Genitourinary History: Denies:: Urinary Tract Infection Female Hx: Positive for:: Currently (missed ab , D+C done 09/08/16) Denies:: Problems with Breasts? Other History/Comment with twins Skin History: Denies:: History Skin Disorders? Pressure Ulcers Hx Musculoskeletal Problems?: No Musculoskeletal History: Denies:: Degenerative Joint Fibromyalgia Joint Replacement Musculoskeletal Trauma Systemic Lupus Hx of Psycho/Social Problems?: No Psycho Social History: Positive for:: Anxiety Denies:: Hx Depression Hx Surgeries?: Yes (gallbladder ercp placment stent placement d/c ) Hx Any Other Health Problems?: Yes Other History: Positive for:: Cancer (thyroid- excision and radiation) Thyroid Disease History Blood Transfusions: Denies:: Blood Transfusions Hx Diabetes: No Hx Alcohol Use: NoHx Substance Use: No Smoking Status: Former Smoker Have You Smoked inLast 12 mo: No Stop/Bang Treated for Sleep Apnea?: No S-Snoring: Do You Snore Loudly: Yes T-Tired: feel tired, fatigued: No O-Obsered: Observed not breath: No P-Blood Pressure: treated: No B- Body Mass Index > 35 kg/m2: No A- Age over 50: No N- Neck Large Circumference: No G- Gender Male: No NOLAN Total Score: 1 Risk Assessment Category Category 1A: Patient has history of documented sleep apnea, and HAS NOT received any narcotic, sedative or anesthesia administration during this stay. Category 1B: Patient has history of documented sleep apnea, and HAS received any narcotic , sedative or anesthesia administration during this stay Category 2: Patient has SUSPECTED Obstructive Sleep Apnea, and HAS received any narcotic , sedative or anesthesia administration during this stay. Category 3: Patient has SUSPECTED Obstructive Sleep Apnea and HAS NOT received narcotic, sedative or anesthesia administration during this stay. Category 4: Outpatient in Procedural Areas with known sleep apnea or who screen positive for High Risk via the STOP/BANG questionnaire. Exam Exam Vital Signs Vital Signs Date Time Temp Pulse Resp B/P Pulse Ox O2 Delivery O2 Flow Rate FiO2 04/26/17 07:47 36.5 90 14 94/60 97 Room Air General Appearance: Alert, Oriented X3 HEENT/AIRWAY: MP 2, Neck Movement (FROM) Lungs: Clear to Auscultation, Clear to Percussion Heart: Exam Unremarkable, Regular Rate/Rhythm Plan Impression Patient chart reviewed, patient interviewed and anesthestic plan with risks, benefits, and alternatives discussed, and informed consent obtained. ASA Physical Status: ASA2 Mod Systemic Disease Anesthetic Plan: MAC (with GA as backup) Bene/Risks/Altern/Consents: Yes HP Complete Prior to Induction: Yes Other Patient is hungry currently; no heartburn sx's. Discussed case with Dr. Ruiz who states benefits outweigh the risks of proceeding with stent removal today. Patient understands the risks to herself and her twins related to anesthesia up to and including demise Pt is 19 weeks Severino Mcintosh MD Apr 26, 2017 08:33
--- NOTE | 2017-04-26 09:19 | PCM.ANEP1 ---
Post Anesthesia PACU Phase 1 Assessment Vital Signs Vital Signs Date Time Temp Pulse Resp B/P Pulse Ox O2 Delivery O2 Flow Rate FiO2 04/26/17 07:47 36.5 90 14 94/60 97 Room Air Level of Alertness: Awake, talking MAN's with Equal Strength: Yes Pain: No Nausea or Vomiting: No CV Function & Hydration Stable: Yes Airway Device: Oxygen Delivery: Room Air Lungs: Clear to Auscultation, Clear to Percussion PACU Phase 2 Assessment Complications: No Follow up Care: No Patient Instructions Provided: N/A Comments See anesth record for PACU VS. PACU VSS heart tones to be checked post procedure. FHT already checked pre- procedure Severino Mcintosh MD Apr 26, 2017 09:19
[2017-04-26 09:20] VITALS: BP 87/54; PULSE 61; RESP 14; O2SAT 96
[2017-04-26 09:26] VITALS: BP 98/55; PULSE 91; RESP 12; O2SAT 97
--- NOTE | 2017-04-26 09:36 | ENDO ---
[address] [address] ENDOSCOPY PROCEDURE PATIENT: LUANNE TEJADA : 1980 MR#: [id number] ADMIT: 04/26/2017 JOB ID: [id number] DATE: 04/26/2017 PROCEDURE: Esophagogastroduodenoscopy with biliary stent removal. INDICATION: A previously placed biliary stent at an outside institution. The patient's ASA classification, Mallampati score and medications as per anesthesia report. INSTRUMENT USED: GIFH 160. PROCEDURE DETAILS: 1. After informed consent was obtained, the patient was brought into the GI suite, where she was placed on oxygen via nasal cannula and monitored with continuous pulse oximeter, telemetry and blood pressure monitoring. A time-out was performed. Then, she was placed in the left lateral decubitus position and medications were administered for sedation. A bite block was placed. The standard EGD scope was inserted through the bite block and advanced under direct visualization to the second portion of the duodenum. The previously placed biliary stent was identified. In using a standard snare, the distal portion of the stent was grasped and then the scope along with the stent was withdrawn from the patient. The scope was then reinserted through the bite block and advanced to the second portion of the duodenum and examined portions of the duodenum appeared normal. 2. Normal-appearing pylorus, antrum and gastric body. 3. Retroflexed views in the gastric body revealed a normal-appearing cardia and fundus. 4. Normal appearing GE junction. 5. Normal appearing esophagus. IMPRESSION: Successful removal of previously placed biliary stent. RECOMMENDATIONS: Followup in GI clinic as needed. COMPLICATIONS: None. ESTIMATED BLOOD LOSS: 0. MTDD
[2017-04-26 09:38] VITALS: BP 94/67; PULSE 85; RESP 14; O2SAT 98
== END 2017-04-26 23:59 | disposition home or self-care (01) ==
LOC: END 07:21
PROVIDERS: ATTEND Internal Medicine Gastroenterology
DX: R19.8 Other specified symptoms and signs involving the digestive system and abdomen (principal); O26.612 Liver and biliary tract disorders in pregnancy, second trimester; K82.9 Disease of gallbladder, unspecified; O99.282 Endocrine, nutritional and metabolic diseases complicating pregnancy, second trimester; E03.9 Hypothyroidism, unspecified; O30.042 Twin pregnancy, dichorionic/diamniotic, second trimester; Z3A.15 15 weeks gestation of pregnancy; J45.909 Unspecified asthma, uncomplicated; Z85.850 Personal history of malignant neoplasm of thyroid; Z87.891 Personal history of nicotine dependence; Z79.51 Long term (current) use of inhaled steroids
CPT/HCPCS: 43247; J2704; J7120